=== PATIENT | male | born 1950 | race Caucasian/White ===

== ENCOUNTER → 2017-09-01 | Outpatient (CLI) | payer OTHER, MEDICARE | LOC: FIMAGING 13:09 | PROVIDERS: ATTEND Internal Medicine | DX: M25.842 Other specified joint disorders, left hand (principal); S53.442A Ulnar collateral ligament sprain of left elbow, initial encounter; S53.432A Radial collateral ligament sprain of left elbow, initial encounter; S63.512A Sprain of carpal joint of left wrist, initial encounter; S63.592A Other specified sprain of left wrist, initial encounter; M25.841 Other specified joint disorders, right hand ==

== ENCOUNTER → 2018-07-01 | Outpatient (CLI) | payer OTHER, MEDICARE | LOC: FIMAGING 08:48 | PROVIDERS: ATTEND Internal Medicine | DX: M25.562 Pain in left knee (principal); M71.22 Synovial cyst of popliteal space [Baker], left knee; M23.222 Derangement of posterior horn of medial meniscus due to old tear or injury, left knee; M25.462 Effusion, left knee; M70.42 Prepatellar bursitis, left knee; M76.892 Other specified enthesopathies of left lower limb, excluding foot; M25.561 Pain in right knee; M23.221 Derangement of posterior horn of medial meniscus due to old tear or injury, right knee; M23.251 Derangement of posterior horn of lateral meniscus due to old tear or injury, right knee; M25.461 Effusion, right knee; M71.21 Synovial cyst of popliteal space [Baker], right knee ==

== ENCOUNTER → 2018-08-05 | Outpatient (CLI) | payer OTHER, MEDICARE | LOC: FIMAGING 09:11 | PROVIDERS: ATTEND Internal Medicine | DX: S46.011A Strain of muscle(s) and tendon(s) of the rotator cuff of right shoulder, initial encounter (principal); M75.91 Shoulder lesion, unspecified, right shoulder; M25.811 Other specified joint disorders, right shoulder; M50.31 Other cervical disc degeneration, high cervical region; M50.322 Other cervical disc degeneration at C5-C6 level; M50.323 Other cervical disc degeneration at C6-C7 level; M99.71 Connective tissue and disc stenosis of intervertebral foramina of cervical region ==